=== PATIENT | male | born 1960 | race Asian ===

== ENCOUNTER → 2016-05-25 | Outpatient (CLI) | payer MEDICARE, OTHER ==
[~2016-05-25] MED LIST: ALLO300 PO; CARB1TAB14 PO; CEPH500 PO; CIPR-278 PO; DOXY100C PO; FURO40 PO; GABA-531 PO; KDUR10 PO; LEVE500T53 PO; LIDOCAINE HCL 2% 5 ML JELLY TP ONE
[2016-05-25 10:04] VITALS: BP 111/75
== END | disposition home or self-care (01) ==
LOC: HBOWC 08:37
PROVIDERS: ATTEND Emergency Medicine
DX: I87.2 Venous insufficiency (chronic) (peripheral) (principal); L97.521 Non-pressure chronic ulcer of other part of left foot limited to breakdown of skin; L84 Corns and callosities; B35.1 Tinea unguium; Q66.7 Congenital pes cavus; M21.962 Unspecified acquired deformity of left lower leg
CPT/HCPCS: 97597

== ENCOUNTER → 2016-06-15 | Outpatient (CLI) | payer MEDICARE, OTHER ==
[~2016-06-15] MED LIST changes: -CEPH500 PO; -LIDOCAINE HCL 2% 5 ML JELLY TP ONE
[2016-06-15 08:57] VITALS: BP 108/64
== END | disposition home or self-care (01) ==
LOC: HBOWC 08:43
PROVIDERS: ATTEND Emergency Medicine
DX: I87.2 Venous insufficiency (chronic) (peripheral) (principal); L97.521 Non-pressure chronic ulcer of other part of left foot limited to breakdown of skin; G20 Parkinson's disease; L84 Corns and callosities; B35.1 Tinea unguium; Q66.7 Congenital pes cavus
CPT/HCPCS: 97597

== ENCOUNTER → 2016-06-29 | Outpatient (CLI) | payer MEDICARE, OTHER ==
[2016-06-29 09:27] VITALS: BP 110/56
== END | disposition home or self-care (01) ==
LOC: HBOWC 08:35
PROVIDERS: ATTEND Emergency Medicine
DX: I87.2 Venous insufficiency (chronic) (peripheral) (principal); L97.521 Non-pressure chronic ulcer of other part of left foot limited to breakdown of skin; L89.622 Pressure ulcer of left heel, stage 2; L84 Corns and callosities; B35.1 Tinea unguium; Q66.7 Congenital pes cavus; M21.952 Unspecified acquired deformity of left thigh; M21.962 Unspecified acquired deformity of left lower leg
CPT/HCPCS: 87070; 87205; 97597

== ENCOUNTER → 2016-07-13 | Outpatient (CLI) | payer MEDICARE, OTHER ==
[2016-07-13 09:23] VITALS: BP 118/77
== END | disposition home or self-care (01) ==
LOC: HBOWC 08:41
PROVIDERS: ATTEND Emergency Medicine
DX: L89.622 Pressure ulcer of left heel, stage 2 (principal); L97.521 Non-pressure chronic ulcer of other part of left foot limited to breakdown of skin; I87.2 Venous insufficiency (chronic) (peripheral); M21.6X2 Other acquired deformities of left foot; B35.1 Tinea unguium; L84 Corns and callosities; D64.9 Anemia, unspecified; G20 Parkinson's disease; Z86.12 Personal history of poliomyelitis
CPT/HCPCS: 97597

== ENCOUNTER → 2016-07-27 | Outpatient (CLI) | payer MEDICARE, OTHER ==
[~2016-07-27] MED LIST changes: -DOXY100C PO
[2016-07-27 09:15] VITALS: BP 108/74
== END | disposition home or self-care (01) ==
LOC: HBOWC 08:40
PROVIDERS: ATTEND Emergency Medicine
DX: L89.622 Pressure ulcer of left heel, stage 2 (principal); I87.2 Venous insufficiency (chronic) (peripheral); L97.521 Non-pressure chronic ulcer of other part of left foot limited to breakdown of skin; G20 Parkinson's disease; Q66.7 Congenital pes cavus; B35.1 Tinea unguium; L84 Corns and callosities
CPT/HCPCS: 97597

== ENCOUNTER → 2016-08-10 | Outpatient (CLI) | payer MEDICARE, OTHER ==
[2016-08-10 10:26] VITALS: BP 113/64
== END | disposition home or self-care (01) ==
LOC: HBOWC 08:42
PROVIDERS: ATTEND Emergency Medicine
DX: I87.2 Venous insufficiency (chronic) (peripheral) (principal); L97.521 Non-pressure chronic ulcer of other part of left foot limited to breakdown of skin; S90.822D Blister (nonthermal), left foot, subsequent encounter; Q66.7 Congenital pes cavus; L84 Corns and callosities; G20 Parkinson's disease; X58.XXXD Exposure to other specified factors, subsequent encounter
CPT/HCPCS: 97597

== ENCOUNTER → 2016-08-25 | Outpatient (CLI) | payer MEDICARE, OTHER ==
[~2016-08-25] MED LIST changes: +DOXY100C PO
[2016-08-25 09:32] VITALS: BP 113/74
== END | disposition home or self-care (01) ==
LOC: HBOWC 08:56
PROVIDERS: ATTEND Emergency Medicine
DX: L97.521 Non-pressure chronic ulcer of other part of left foot limited to breakdown of skin (principal); I87.2 Venous insufficiency (chronic) (peripheral); M21.6X2 Other acquired deformities of left foot; L84 Corns and callosities; G20 Parkinson's disease; B35.1 Tinea unguium; Z86.12 Personal history of poliomyelitis
CPT/HCPCS: 87070; 87205; 97597

== ENCOUNTER → 2016-09-08 | Outpatient (CLI) | payer MEDICARE, OTHER ==
[~2016-09-08] MED LIST changes: -CIPR-278 PO
[2016-09-08 09:33] VITALS: BP 103/67
== END | disposition home or self-care (01) ==
LOC: HBOWC 08:57
PROVIDERS: ATTEND Emergency Medicine
DX: I87.2 Venous insufficiency (chronic) (peripheral) (principal); L97.321 Non-pressure chronic ulcer of left ankle limited to breakdown of skin; L97.821 Non-pressure chronic ulcer of other part of left lower leg limited to breakdown of skin; L30.9 Dermatitis, unspecified; M21.6X2 Other acquired deformities of left foot; B35.1 Tinea unguium; L84 Corns and callosities; G20 Parkinson's disease; Z86.12 Personal history of poliomyelitis
CPT/HCPCS: 97597

== ENCOUNTER → 2016-09-22 | Outpatient (CLI) | payer MEDICARE, OTHER ==
[2016-09-22 09:26] VITALS: BP 105/71
== END | disposition home or self-care (01) ==
LOC: HBOWC 09:21
PROVIDERS: ATTEND Emergency Medicine
DX: I87.2 Venous insufficiency (chronic) (peripheral) (principal); L97.321 Non-pressure chronic ulcer of left ankle limited to breakdown of skin; G20 Parkinson's disease; B35.1 Tinea unguium; L84 Corns and callosities; Q66.7 Congenital pes cavus
CPT/HCPCS: 97597

== ENCOUNTER → 2016-10-06 | Outpatient (CLI) | payer MEDICARE, OTHER ==
[~2016-10-06] MED LIST changes: -DOXY100C PO
[2016-10-06 09:45] VITALS: BP 105/59
== END | disposition home or self-care (01) ==
LOC: HBOWC 08:53
PROVIDERS: ATTEND Emergency Medicine
DX: I87.2 Venous insufficiency (chronic) (peripheral) (principal); L97.321 Non-pressure chronic ulcer of left ankle limited to breakdown of skin; G20 Parkinson's disease; B35.1 Tinea unguium; L84 Corns and callosities; Q66.7 Congenital pes cavus

== ENCOUNTER → 2016-10-20 | Outpatient (CLI) | payer MEDICARE, OTHER ==
[2016-10-20 09:07] VITALS: BP 100/60
== END | disposition home or self-care (01) ==
LOC: HBOWC 08:41
PROVIDERS: ATTEND Emergency Medicine Undersea and Hyperbaric Medicine
DX: I87.2 Venous insufficiency (chronic) (peripheral) (principal); L97.321 Non-pressure chronic ulcer of left ankle limited to breakdown of skin; L97.521 Non-pressure chronic ulcer of other part of left foot limited to breakdown of skin; G20 Parkinson's disease; L84 Corns and callosities; B35.1 Tinea unguium; M79.672 Pain in left foot; M21.6X2 Other acquired deformities of left foot; Z86.12 Personal history of poliomyelitis; Z86.73 Personal history of transient ischemic attack (TIA), and cerebral infarction without residual deficits
CPT/HCPCS: 11056

== ENCOUNTER → 2016-11-03 | Outpatient (CLI) | payer MEDICARE, OTHER ==
[2016-11-03 09:30] VITALS: BP 100/57
== END | disposition home or self-care (01) ==
LOC: HBOWC 08:41
PROVIDERS: ATTEND Emergency Medicine
DX: I87.2 Venous insufficiency (chronic) (peripheral) (principal); L97.321 Non-pressure chronic ulcer of left ankle limited to breakdown of skin; M21.6X2 Other acquired deformities of left foot; G20 Parkinson's disease; L84 Corns and callosities; B35.1 Tinea unguium; Z86.12 Personal history of poliomyelitis; Z86.73 Personal history of transient ischemic attack (TIA), and cerebral infarction without residual deficits

== ENCOUNTER → 2016-11-17 | Outpatient (CLI) | payer MEDICARE, OTHER ==
[2016-11-17 09:19] VITALS: BP 101/56
== END | disposition home or self-care (01) ==
LOC: HBOWC 08:36
PROVIDERS: ATTEND Emergency Medicine
DX: I87.2 Venous insufficiency (chronic) (peripheral) (principal); L97.821 Non-pressure chronic ulcer of other part of left lower leg limited to breakdown of skin; L97.321 Non-pressure chronic ulcer of left ankle limited to breakdown of skin; L84 Corns and callosities; G20 Parkinson's disease; Z86.73 Personal history of transient ischemic attack (TIA), and cerebral infarction without residual deficits; B35.1 Tinea unguium; M21.6X2 Other acquired deformities of left foot; Q66.7 Congenital pes cavus
CPT/HCPCS: 97597

== ENCOUNTER → 2016-12-01 | Outpatient (CLI) | payer MEDICARE, OTHER ==
[~2016-12-01] MED LIST changes: +TRIAMCINOLONE 0.1% 15 GM CREAM TP ONE
[2016-12-01 09:32] VITALS: BP 106/72
== END | disposition home or self-care (01) ==
LOC: HBOWC 08:40
PROVIDERS: ATTEND Emergency Medicine
DX: I87.2 Venous insufficiency (chronic) (peripheral) (principal); L97.321 Non-pressure chronic ulcer of left ankle limited to breakdown of skin; L97.521 Non-pressure chronic ulcer of other part of left foot limited to breakdown of skin; G20 Parkinson's disease; B35.1 Tinea unguium; L84 Corns and callosities; Z86.73 Personal history of transient ischemic attack (TIA), and cerebral infarction without residual deficits
CPT/HCPCS: 97597

== ENCOUNTER → 2016-12-15 | Outpatient (CLI) | payer MEDICARE, OTHER ==
[~2016-12-15] MED LIST changes: +LIDOCAINE HCL 2% 5 ML JELLY TP ONE
[2016-12-15 09:14] VITALS: BP 104/60
== END | disposition home or self-care (01) ==
LOC: HBOWC 08:32
PROVIDERS: ATTEND Emergency Medicine
DX: I87.2 Venous insufficiency (chronic) (peripheral) (principal); L97.321 Non-pressure chronic ulcer of left ankle limited to breakdown of skin; L97.521 Non-pressure chronic ulcer of other part of left foot limited to breakdown of skin; S80.811D Abrasion, right lower leg, subsequent encounter; G20 Parkinson's disease; Q66.7 Congenital pes cavus; L84 Corns and callosities; Z86.73 Personal history of transient ischemic attack (TIA), and cerebral infarction without residual deficits; X58.XXXD Exposure to other specified factors, subsequent encounter
CPT/HCPCS: 97597

== ENCOUNTER → 2016-12-29 | Outpatient (CLI) | payer MEDICARE, OTHER ==
[~2016-12-29] MED LIST changes: -LIDOCAINE HCL 2% 5 ML JELLY TP ONE; -TRIAMCINOLONE 0.1% 15 GM CREAM TP ONE
[2016-12-29 09:05] VITALS: BP 123/75
== END | disposition home or self-care (01) ==
LOC: HBOWC 09:14
PROVIDERS: ATTEND Emergency Medicine
DX: I87.2 Venous insufficiency (chronic) (peripheral) (principal); L97.521 Non-pressure chronic ulcer of other part of left foot limited to breakdown of skin; L84 Corns and callosities; B35.1 Tinea unguium; Z86.73 Personal history of transient ischemic attack (TIA), and cerebral infarction without residual deficits
CPT/HCPCS: 97597

== ENCOUNTER → 2017-01-12 | Outpatient (CLI) | payer MEDICARE, OTHER ==
[2017-01-12 09:18] VITALS: BP 100/62
== END | disposition home or self-care (01) ==
LOC: HBOWC 08:46
PROVIDERS: ATTEND Orthopaedic Surgery
DX: I87.2 Venous insufficiency (chronic) (peripheral) (principal); L97.521 Non-pressure chronic ulcer of other part of left foot limited to breakdown of skin; L84 Corns and callosities; B35.1 Tinea unguium; Z86.73 Personal history of transient ischemic attack (TIA), and cerebral infarction without residual deficits

== ENCOUNTER → 2017-01-26 | Outpatient (CLI) | payer MEDICARE, OTHER ==
[~2017-01-26] MED LIST changes: +LIDOCAINE HCL 2% 5 ML JELLY ONE
[2017-01-26 09:26] VITALS: BP 110/63
== END | disposition home or self-care (01) ==
LOC: HBOWC 08:44
PROVIDERS: ATTEND Nurse Practitioner Adult Health
DX: I87.2 Venous insufficiency (chronic) (peripheral) (principal); L97.521 Non-pressure chronic ulcer of other part of left foot limited to breakdown of skin; G20 Parkinson's disease; B35.1 Tinea unguium; L84 Corns and callosities; Q66.7 Congenital pes cavus; Z86.73 Personal history of transient ischemic attack (TIA), and cerebral infarction without residual deficits

== ENCOUNTER → 2017-02-09 | Outpatient (CLI) | payer MEDICARE, OTHER ==
[~2017-02-09] MED LIST changes: -LIDOCAINE HCL 2% 5 ML JELLY ONE; +LIDOCAINE HCL 2% 5 ML JELLY TP ONE
[2017-02-09 08:54] VITALS: BP 106/61
== END | disposition home or self-care (01) ==
LOC: HBOWC 08:30
PROVIDERS: ATTEND Podiatrist
DX: I87.2 Venous insufficiency (chronic) (peripheral) (principal); L97.521 Non-pressure chronic ulcer of other part of left foot limited to breakdown of skin; L97.321 Non-pressure chronic ulcer of left ankle limited to breakdown of skin; L84 Corns and callosities; B35.1 Tinea unguium; G20 Parkinson's disease; M24.572 Contracture, left ankle; Q66.7 Congenital pes cavus; Z86.73 Personal history of transient ischemic attack (TIA), and cerebral infarction without residual deficits

== ENCOUNTER → 2017-02-16 | Outpatient (CLI) | payer MEDICARE, OTHER ==
[~2017-02-16] MED LIST changes: -LIDOCAINE HCL 2% 5 ML JELLY TP ONE
[2017-02-16 09:06] VITALS: BP 105/68
== END | disposition home or self-care (01) ==
LOC: HBOWC 08:54
PROVIDERS: ATTEND Podiatrist
DX: I87.2 Venous insufficiency (chronic) (peripheral) (principal); L97.321 Non-pressure chronic ulcer of left ankle limited to breakdown of skin; L97.521 Non-pressure chronic ulcer of other part of left foot limited to breakdown of skin; L84 Corns and callosities; B35.1 Tinea unguium; M24.572 Contracture, left ankle; G20 Parkinson's disease; Z86.73 Personal history of transient ischemic attack (TIA), and cerebral infarction without residual deficits
CPT/HCPCS: 97597

== ENCOUNTER → 2017-03-02 | Outpatient (CLI) | payer MEDICARE, OTHER ==
[2017-03-02 09:50] VITALS: BP 100/55
== END | disposition home or self-care (01) ==
LOC: HBOWC 08:40
PROVIDERS: ATTEND Podiatrist
DX: I87.2 Venous insufficiency (chronic) (peripheral) (principal); L97.521 Non-pressure chronic ulcer of other part of left foot limited to breakdown of skin; L97.821 Non-pressure chronic ulcer of other part of left lower leg limited to breakdown of skin; G20 Parkinson's disease; L84 Corns and callosities; B35.1 Tinea unguium; M24.572 Contracture, left ankle; Z86.73 Personal history of transient ischemic attack (TIA), and cerebral infarction without residual deficits
CPT/HCPCS: 97597

== ENCOUNTER → 2017-03-16 | Outpatient (CLI) | payer MEDICARE, OTHER ==
[~2017-03-16] MED LIST changes: +LIDOCAINE HCL 2% 5 ML JELLY TP ONE
[2017-03-16 09:12] VITALS: BP 106/60
== END | disposition home or self-care (01) ==
LOC: HBOWC 08:16
PROVIDERS: ATTEND Podiatrist
DX: I87.2 Venous insufficiency (chronic) (peripheral) (principal); L97.521 Non-pressure chronic ulcer of other part of left foot limited to breakdown of skin; L97.821 Non-pressure chronic ulcer of other part of left lower leg limited to breakdown of skin; G20 Parkinson's disease; L84 Corns and callosities; B35.1 Tinea unguium; M24.572 Contracture, left ankle; Z86.73 Personal history of transient ischemic attack (TIA), and cerebral infarction without residual deficits
CPT/HCPCS: 97597

== ENCOUNTER → 2017-03-30 | Outpatient (CLI) | payer MEDICARE, OTHER ==
[2017-03-30 09:19] VITALS: BP 95/59
== END | disposition home or self-care (01) ==
LOC: HBOWC 08:40
PROVIDERS: ATTEND Podiatrist
DX: I87.2 Venous insufficiency (chronic) (peripheral) (principal); L97.521 Non-pressure chronic ulcer of other part of left foot limited to breakdown of skin; G20 Parkinson's disease; L84 Corns and callosities; B35.1 Tinea unguium
CPT/HCPCS: 97597

== ENCOUNTER → 2017-04-14 | Outpatient (CLI) | payer MEDICARE, OTHER ==
[~2017-04-14] MED LIST changes: -LIDOCAINE HCL 2% 5 ML JELLY TP ONE
[2017-04-14 08:41] VITALS: BP 103/62
[2017-04-14 08:49] VITALS: BP 103/62
== END | disposition home or self-care (01) ==
LOC: HBOWC 08:16
PROVIDERS: ATTEND Podiatrist
DX: E11.621 Type 2 diabetes mellitus with foot ulcer (principal); L97.521 Non-pressure chronic ulcer of other part of left foot limited to breakdown of skin; G20 Parkinson's disease; L84 Corns and callosities; I87.2 Venous insufficiency (chronic) (peripheral); M24.572 Contracture, left ankle; Z86.73 Personal history of transient ischemic attack (TIA), and cerebral infarction without residual deficits
CPT/HCPCS: 97597

== ENCOUNTER → 2017-05-05 | Outpatient (CLI) | payer MEDICARE, OTHER ==
[2017-05-05 09:00] VITALS: BP 106/62
[2017-05-05 09:04] VITALS: BP 100/58
== END | disposition home or self-care (01) ==
LOC: HBOWC 08:39
PROVIDERS: ATTEND Podiatrist
DX: L97.821 Non-pressure chronic ulcer of other part of left lower leg limited to breakdown of skin (principal); L84 Corns and callosities; I87.2 Venous insufficiency (chronic) (peripheral); B35.1 Tinea unguium; Z86.73 Personal history of transient ischemic attack (TIA), and cerebral infarction without residual deficits
CPT/HCPCS: 97597

== ENCOUNTER → 2017-05-26 | Outpatient (CLI) | payer MEDICARE, OTHER ==
[2017-05-26 08:49] VITALS: BP 100/64
== END | disposition home or self-care (01) ==
LOC: HBOWC 08:22
PROVIDERS: ATTEND Podiatrist
DX: I87.2 Venous insufficiency (chronic) (peripheral) (principal); L97.521 Non-pressure chronic ulcer of other part of left foot limited to breakdown of skin; B35.1 Tinea unguium; Z86.73 Personal history of transient ischemic attack (TIA), and cerebral infarction without residual deficits
CPT/HCPCS: 97597

== ENCOUNTER → 2017-06-30 | Outpatient (CLI) | payer MEDICARE, OTHER ==
[~2017-06-30] MED LIST changes: +LIDOCAINE HCL 2% 5 ML JELLY TP ONE
[2017-06-30 09:33] VITALS: BP 120/74
== END | disposition home or self-care (01) ==
LOC: HBOWC 08:22
PROVIDERS: ATTEND Podiatrist
DX: L97.511 Non-pressure chronic ulcer of other part of right foot limited to breakdown of skin (principal); L97.821 Non-pressure chronic ulcer of other part of left lower leg limited to breakdown of skin; I87.2 Venous insufficiency (chronic) (peripheral); B35.1 Tinea unguium; G20 Parkinson's disease; L84 Corns and callosities; Z87.820 Personal history of traumatic brain injury
CPT/HCPCS: 97597

== ENCOUNTER → 2017-07-14 | Outpatient (CLI) | payer MEDICARE, OTHER ==
[~2017-07-14] MED LIST changes: -LIDOCAINE HCL 2% 5 ML JELLY TP ONE
[2017-07-14 09:35] VITALS: BP 97/53
== END | disposition home or self-care (01) ==
LOC: HBOWC 08:26
PROVIDERS: ATTEND Podiatrist
DX: L97.511 Non-pressure chronic ulcer of other part of right foot limited to breakdown of skin (principal); L97.821 Non-pressure chronic ulcer of other part of left lower leg limited to breakdown of skin; B35.1 Tinea unguium; L84 Corns and callosities

== ENCOUNTER → 2019-05-31 | Outpatient (CLI) | payer OTHER ==
[~2019-05-31] MED LIST changes: +LIDOCAINE 2% 5 ML JELLY TP ONE
== END | disposition home or self-care (01) ==
LOC: HBOWC 08:48
PROVIDERS: ATTEND Podiatrist
DX: L97.522 Non-pressure chronic ulcer of other part of left foot with fat layer exposed (principal); L97.821 Non-pressure chronic ulcer of other part of left lower leg limited to breakdown of skin; L97.811 Non-pressure chronic ulcer of other part of right lower leg limited to breakdown of skin; I73.9 Peripheral vascular disease, unspecified; M81.0 Age-related osteoporosis without current pathological fracture; M10.9 Gout, unspecified; I10 Essential (primary) hypertension; G40.909 Epilepsy, unspecified, not intractable, without status epilepticus; I87.2 Venous insufficiency (chronic) (peripheral); G20 Parkinson's disease; B35.1 Tinea unguium; L84 Corns and callosities
CPT/HCPCS: 11042; 97597; 97598

== ENCOUNTER → 2019-06-07 | Outpatient (CLI) | payer OTHER ==
[~2019-06-07] MED LIST changes: -LIDOCAINE 2% 5 ML JELLY TP ONE
== END | disposition home or self-care (01) ==
LOC: HBOWC 08:32
PROVIDERS: ATTEND Podiatrist
DX: L97.528 Non-pressure chronic ulcer of other part of left foot with other specified severity (principal); I87.2 Venous insufficiency (chronic) (peripheral); I73.9 Peripheral vascular disease, unspecified; M81.0 Age-related osteoporosis without current pathological fracture; M10.9 Gout, unspecified; I10 Essential (primary) hypertension; G40.909 Epilepsy, unspecified, not intractable, without status epilepticus; G20 Parkinson's disease; B35.1 Tinea unguium; L84 Corns and callosities